=== PATIENT | male | born 1995 | race Caucasian/White ===

== ENCOUNTER 2024-01-30 07:03 | Outpatient (CLI) | payer OTHER ==
--- NOTE | 2024-01-30 23:30 | Ultrasound Report ---
PROCEDURE: Abdomen Limited INDICATIONS: GILBERT SYNDROME TECHNIQUE: Real-time focused scanning was performed of the abdomen, with image documentation. COMPARISONS: None. FINDINGS: Liver: Increased liver echogenicity, commonly mild hepatic steatosis. Gallbladder: No gallstones, sludge, wall thickening or pericholecystic edema. Biliary ducts: Intrahepatic bile ducts are non-dilated. Extrahepatic bile duct caliber measures 2 m m. Normal is 6-7 mm or less in diameter, or 10 mm or less post-cholecystectomy. Pancreas: Visualized portions of the pancreas are sonographically normal. Right kidney: Normal in size and echotexture. Right kidney measures 10.5 cm long. No hydronephrosis or nephrolithiasis. No solid masses. No complex renal cystic lesions which require follow-up. IVC: Intrahepatic inferior vena cava is patent. Miscellaneous: No free abdominal fluid. IMPRESSION: Findings compatible with hepatic steatosis. Otherwise, unremarkable right upper quadrant abdominal ul trasound. Reviewed by: Gregg Gibbons MD on 01/30/2024 11:29 PM PDT Approved by: Gregg Gibbons MD on 01/30/2024 11:29 PM PDT Station ID: [id number]
== END 2024-01-30 07:04 | disposition home or self-care (01) ==
LOC: DI 07:03
PROVIDERS: ATTEND Family Medicine
DX: E80.4 Gilbert syndrome (principal)